=== PATIENT | male | born 1950 | race Asian ===

== ENCOUNTER 2021-03-12 07:22 | Emergency (ER) | payer OTHER ==
[~2021-03-12] VITALS: Ht 165.1 cm; Wt 68.2 kg
[2021-03-12] MEDS ORDERED: ACYC200C24 PO (07:36)
[2021-03-12] MEDS ORDERED: GABA-1181 PO (07:36)
[2021-03-12] MEDS ORDERED: PRED1 PO (07:36)
[2021-03-12] MEDS ORDERED: RIZA10TA42 PO (07:44)
[2021-03-12] MEDS ORDERED: TRAM50TA4 PO (07:44)
[2021-03-12] MEDS ORDERED: METOCLOPRAMIDE HCL 5 MG/ML 2 ML VIAL IVP ONE (07:45)
[2021-03-12] MEDS ORDERED: DiphenhydrAMINE HCL 50 MG/ML VIAL IVP ONE (07:45)
[2021-03-12] MEDS ORDERED: KETOROLAC TROMETHAMINE 30 MG/ML VIAL IVP ONE (07:45)
[2021-03-12] MEDS ORDERED: SODIUM CHLORIDE 0.9% 1,000 ML IV ONE (07:45)
[2021-03-12 09:05] VITALS: BP 148/90
== END 2021-03-12 09:05 | disposition home or self-care (01) ==
LOC: EMS 07:28
DX: G43.909 Migraine, unspecified, not intractable, without status migrainosus (principal)
CPT/HCPCS: 96361; 96374; 96375; 99284; J1200; J1885; J2765; J7030

== ENCOUNTER 2021-03-22 00:09 | Emergency (ER) | payer OTHER ==
[~2021-03-22] VITALS: Ht 167.6 cm; Wt 65.9 kg
[~2021-03-22 00:09] MED LIST: ACYC200C24 PO; GABA-1181 PO; PRED1 PO; RIZA10TA42 PO; TRAM50TA4 PO
[2021-03-22] MEDS ORDERED: HYDR-4723 PO (01:18)
[2021-03-22] MEDS ORDERED: GANC5GEL2 OD (01:18)
[2021-03-22] MEDS ORDERED: LIDOCAINE 3% CREAM 85 GM TUBE TP ONE (02:00)
[2021-03-22 03:13] VITALS: BP 136/88
== END 2021-03-22 04:09 | disposition home or self-care (01) ==
LOC: EMS 00:10
DX: B02.29 Other postherpetic nervous system involvement (principal); Z79.899 Other long term (current) drug therapy
CPT/HCPCS: 99283